=== PATIENT | female | born 1960 ===

== ENCOUNTER 2023-12-28 08:40 | Day surgery (SDC) | payer OTHER ==
[2023-12-25 09:15] LABS: HEMATOCRIT 37.2 % (36.0-45.00); MEAN CELL VOLUME 92.1 fL (80.00-100.00); MEAN CORPUSCULAR HEMOGLOBIN 32.2 pg (27.00-32.0); PLATELET COUNT 342 K/uL (150-450); RED BLOOD COUNT 4.04 M/uL (4.00-6.00)
[2023-12-25 09:17] LABS: URINE APPEARANCE Clear; URINE BILIRRUBIN Negative (NEGATIVE); URINE BLOOD Negative; URINE COLOR Yellow; URINE GLUCOSE Negative (NEGATIVE); URINE LEUKOCYTE Negative; URINE NITRATE Negative; URINE PROTEIN Negative (NEGATIVE); URINE UROBILINOGEN 0.2 E.U./dl
[2023-12-25 09:21] LABS: URINE BACTERIA 12.5 uL (0.0-1933); URINE EPITHELIAL CELLS 4.2 uL (0.0-38.8); URINE RBC 2.9 uL (0.0-20.8); URINE WBC 2.1 uL (0.0-23.2)
[2023-12-25 09:48] LABS: INR 0.96; PARTIAL THROMBOPLASTIN TIME 26.8 SECONDS (22.0-34.0); PROTHROMBIN TIME 10.1 SECONDS (9.0-11.5)
[2023-12-25 09:54] LABS: ALBUMIN 3.9 gm/dL (3.4-5.0); BILIRUBIN TOTAL 0.5 mg/dL (0.3-1.2); CALCIUM 9.9 mg/dL (8.5-10.1); CREATININE SERUM 1.07 mg/dL (0.55-1.02); GFR 51.96; GLOBULINA 3.9 G/DL (2.4-3.5); POTASSIUM 4.01 mEq/L (3.5-5.1); TOTAL PROTEIN 7.8 gm/dL (6.4-8.2)
[~2023-12-28] VITALS: Ht 157.5 cm; Wt 72.6 kg
[~2023-12-28 08:40] MED LIST: HYZAAR 100-251 EACH PO; LIPITOR20 MG PO; NORVASC5 MG PO; SYMBICORT 16010.2 GM IH
[2023-12-28] MEDS ORDERED: CEFAZOLIN SODIUM 2,000 MG in 0.9 % SODIUM CHLORIDE 100 ML IV ONE (12:45)
== END 2023-12-28 17:50 | disposition home or self-care (01) ==
LOC: CIR.AMB 08:40
PROVIDERS: ATTEND Orthopaedic Surgery
DX: M66.231 Spontaneous rupture of extensor tendons, right forearm (principal); M24.821 Other specific joint derangements of right elbow, not elsewhere classified; G56.21 Lesion of ulnar nerve, right upper limb; M77.11 Lateral epicondylitis, right elbow; G57.51 Tarsal tunnel syndrome, right lower limb; Z88.6 Allergy status to analgesic agent; I10 Essential (primary) hypertension; J45.909 Unspecified asthma, uncomplicated; E78.00 Pure hypercholesterolemia, unspecified